=== PATIENT | female | born 1955 | race Caucasian/White ===

== ENCOUNTER 2016-09-30 20:37 | Inpatient (IN) | payer OTHER ==
[~2016-09-30] VITALS: Ht 162.6 cm; Wt 66.5 kg
[~2016-09-30 20:37] MED LIST: AUGMENTIN875 MG PO; CLEOCIN300 MG PO; Ecotrin PO; NAPROSYN500 MG PO
[2016-09-30 21:54] LABS: MCH 30.4 PG (29.0-34.0); MCHC 32.6 G/DL (30.0-36.0); MCV 93.2 FL (83-99); MEAN PLAT.VOLUME 10.7 uM^3 (9.5-12.4); PLATELET COUNT 600 K/uL (156-360); RBC DIS.WIDTH-CV 16.9 % (11.8-14.6); RED BLOOD COUNT 3.65 M/uL (3.80-5.20)
[2016-09-30 21:55] LABS: WHITE BLOOD COUNT 53.6 K/uL (4.1-10.2)
[2016-09-30 21:57] LABS: CHLORIDE 104 mEq/L (99-109); POTASSIUM 4.2 mEq/L (3.7-5.4); SODIUM 138 mEq/L (136-147)
[2016-09-30 21:58] LABS: GLUCOSE 109 mg/dL (70-99)
[2016-09-30 22:00] LABS: ANION GAP 11 MEQ/L (2-14)
[2016-09-30 22:02] LABS: GFR ESTIMATE (CALCULATED) > 59 mL/min/
[2016-09-30 22:03] LABS: TROP-I INTERPRETATION NEGATIVE; TROPONIN-I < 0.01 ng/mL (0.0-0.30)
[2016-09-30 22:12] LABS: UREA NITROGEN (BUN) 14 mg/dL (9-23)
[2016-09-30 22:15] LABS: INTER. NORMALIZED RATIO 1.1; PROTHROMBIN TIME 10.8 (9.2-11.2); PTT 27.5 (25-32)
[2016-09-30 22:17] LABS: TOTAL BILIRUBIN 0.4 mg/dL (0.0-1.0)
[2016-09-30 22:18] LABS: ALKALINE PHOSPHATASE 84 IU/L (3-129)
[2016-09-30 22:20] LABS: DIRECT BILIRUBIN 0.1 mg/dL (0.0-0.3)
[2016-09-30 22:22] LABS: LIPASE 29 U/L (1.0-51.0)
[2016-09-30] MEDS ORDERED: OMEPRAZOLE20 MG PO ×2 (23:51→23:52)
[2016-09-30] MEDS ORDERED: RANITIDINE HCL300 MG PO (23:51)
[2016-09-30] MEDS ORDERED: BENTYL20 MG PO (23:51)
[2016-09-30] MEDS ORDERED: TYLENOL EXTRA500 MG PO (23:51)
[2016-09-30] MEDS ORDERED: RANITIDINE HCL300 M1 PO (23:52)
[2016-09-30] MEDS ORDERED: ZOLOFT100 MG PO (23:52)
[2016-09-30] MEDS ORDERED: LEVOTHYROXINE50 MCG PO (23:52)
[2016-09-30] MEDS ORDERED: CLONAZEPAM0.5 MG PO (23:52)
[2016-10-01 00:17] LABS: MONOSPOT (MONONUCLEOSIS SEROL) NEGATIVE
[2016-10-01 00:18] LABS: INTERNAL CONTROL VALID? YES
[2016-10-01 00:45] LABS: HEMATOCRIT 30.2 % (36.0-46.0); MCH 29.8 PG (29.0-34.0); MCHC 31.8 G/DL (30.0-36.0); MCV 93.8 FL (83-99); MEAN PLAT.VOLUME 10.1 uM^3 (9.5-12.4); PLATELET COUNT 583 K/uL (156-360); RBC DIS.WIDTH-CV 16.8 % (11.8-14.6); RBC DIS.WIDTH-SD 54.8 % (39-53); RED BLOOD COUNT 3.22 M/uL (3.80-5.20); WHITE BLOOD COUNT 49.3 K/uL (4.1-10.2)
[2016-10-01 00:47] LABS: ADD DIFF? YES
[2016-10-01 00:48] LABS: DELETE MACHINE DIFF? NO
[2016-10-01 00:57] LABS: NRBC (%) 0.2 /100 WBC (0-0)
[2016-10-01 01:18] LABS: ADD MIUA? YES; BILIRUBIN NEGATIVE; BLOOD NEGATIVE; COLOR YELLOW ((YELLOW)); GLUCOSE (STRIP) NEGATIVE; KETONES NEGATIVE; LEUKOCYTES TRACE; NITRITE NEGATIVE; PROTEIN (STRIP) NEGATIVE; SPECIFIC GRAVITY 1.033 (1.000-1.030); UROBILINOGEN 0.2 MG/DL (0.2-1.0)
[2016-10-01 01:41] LABS: BACTERIA NONE SEEN; CASTS NONE SEEN /LPF; CRYSTALS NONE SEEN; EPITHELIAL CELLS RARE; MUCUS NONE SEEN; RED BLOOD CELLS 0-5 /HPF (0-5); UCUL ADDED? NO; WHITE BLOOD CELLS 0-5 /HPF (0-5)
[2016-10-01 01:45] LABS: ABS NEUTROPHIL COUNT 31.28; ANISOCYTOSIS 2+; ATYPICAL LYMPHOCYTE 3.5 %; BAND NEUTROPHILS 4.5 % (0-8.0); EOSINOPHIL ABS CT 1.48; HYPOCHROMASIA 1+; LYMPHOCYTES 12.5 % (15.0-45.0); MACROCYTES 2+; METAMYELOCYTES 2.5 %; MICROCYTOSIS OCC; OVALOCYTES OCC; PLAT.SUFFICIENCY INCREASED; PLATELET CLUMPS PRESENT - PLATELET COUNT APPEARS INCREASED; POLYCHROMASIA OCC; USER ID DCS
[2016-10-01 03:15] VITALS: BP 110/62
[2016-10-01 03:44] LABS: LACTATE DEHYDROGENASE 389 IU/L (20-246)
[2016-10-01 04:44] LABS: HEMATOCRIT 30.7 % (36.0-46.0); MCH 30.4 PG (29.0-34.0); MCHC 32.6 G/DL (30.0-36.0); MCV 93.3 FL (83-99); MEAN PLAT.VOLUME 10.2 uM^3 (9.5-12.4); PLATELET COUNT 604 K/uL (156-360); RBC DIS.WIDTH-SD 55.7 % (39-53); RED BLOOD COUNT 3.29 M/uL (3.80-5.20)
[2016-10-01 04:47] LABS: ADD DIFF? YES; INTER. NORMALIZED RATIO 1.1; PROTHROMBIN TIME 11.4 (9.2-11.2); PTT 28.9 (25-32); WHITE BLOOD COUNT 50.1 K/uL (4.1-10.2)
[2016-10-01 04:55] LABS: NRBC (%) 0.2 /100 WBC (0-0)
[2016-10-01 04:58] LABS: TROP-I INTERPRETATION NEGATIVE; TROPONIN-I < 0.01 ng/mL (0.0-0.30)
[2016-10-01 06:18] LABS: ABS NEUTROPHIL COUNT 28.07; ANISOCYTOSIS 2+; ATYPICAL LYMPHOCYTE 5.5 %; EOSINOPHIL ABS CT 1.75; EOSINOPHILS 3.5 % (0-5.0); HYPOCHROMASIA 1+; MACROCYTES 2+; MICROCYTOSIS OCC; MYELOCYTES 3.5 %; OVALOCYTES OCC; PLAT.SUFFICIENCY INCREASED; PLATELET CLUMPS PRESENT - PLATELET COUNT APPEARS INCREASED; POLYCHROMASIA OCC; SPHEROCYTES OCC; USER ID DCS
[2016-10-01 08:00] VITALS: BP 94/54
[2016-10-01 10:49] LABS: TROP-I INTERPRETATION NEGATIVE; TROPONIN-I < 0.01 ng/mL (0.0-0.30)
[2016-10-01 11:14] VITALS: BP 97/58
[2016-10-01 13:28] LABS: DELETE MACHINE DIFF? YES
[2016-10-01 15:45] VITALS: BP 105/58
[2016-10-01 19:50] VITALS: BP 99/62
[2016-10-01 23:14] VITALS: BP 107/62
[2016-10-02 03:39] VITALS: BP 103/59
[2016-10-02 07:29] LABS: ANION GAP 7 MEQ/L (2-14); CHLORIDE 110 MEQ/L (99-109); GFR ESTIMATE (CALCULATED) > 59 mL/min/; GLUCOSE 87 mg/dL (70-99); IRON 23 MCG/DL (35-150); POTASSIUM 4.3 MEQ/L (3.7-5.4); SAMPLE HEMOLYSIS CHECK 0; SAMPLE ICTERIC CHECK 0; SAMPLE LIPEMIA CHECK 0; SODIUM 141 MEQ/L (136-147); UREA NITROGEN (BUN) 7 mg/dL (9-23)
[2016-10-02 07:34] LABS: HEMATOCRIT 30.8 % (36.0-46.0); MCH 29.7 PG (29.0-34.0); MCHC 31.5 G/DL (30.0-36.0); MCV 94.2 FL (83-99); RBC DIS.WIDTH-CV 17.3 % (11.8-14.6); RBC DIS.WIDTH-SD 59.7 % (39-53); RED BLOOD COUNT 3.27 M/uL (3.80-5.20)
[2016-10-02 07:49] LABS: WHITE BLOOD COUNT 42.9 K/uL (4.1-10.2)
[2016-10-02 07:51] LABS: HEMATOLOGY COMMENT 1 SMEAR COMPATIBLE; MEAN PLAT.VOLUME 10.8 uM^3 (9.5-12.4); PLATELET COUNT 507 K/uL (156-360)
[2016-10-02 07:53] VITALS: BP 112/65
[2016-10-02 15:59] VITALS: BP 105/63
[2016-10-02 23:11] VITALS: BP 108/61
[2016-10-03 07:02] LABS: NRBC (%) 0.2 /100 WBC (0-0)
[2016-10-03 07:21] LABS: MEAN PLAT.VOLUME 10.8 uM^3 (9.5-12.4); PLATELET COUNT 475 K/uL (156-360)
[2016-10-03 07:28] LABS: ANION GAP 8 MEQ/L (2-14); CHLORIDE 111 MEQ/L (99-109); GFR ESTIMATE (CALCULATED) > 59 mL/min/; GLUCOSE 82 mg/dL (70-99); POTASSIUM 3.9 MEQ/L (3.7-5.4); SAMPLE HEMOLYSIS CHECK 0; SAMPLE ICTERIC CHECK 0; SAMPLE LIPEMIA CHECK 0; SODIUM 143 MEQ/L (136-147); UREA NITROGEN (BUN) 9 mg/dL (9-23)
[2016-10-03 08:02] LABS: ABS NEUTROPHIL COUNT 24.62; BAND NEUTROPHILS 12.5 % (0-8.0); EOSINOPHIL ABS CT 1.03; EOSINOPHILS 2.5 % (0-5.0); METAMYELOCYTES 15.5 %; MYELOCYTES 1.5 %
[2016-10-03 08:04] LABS: ANISOCYTOSIS OCC; HEMATOCRIT 29.9 % (36.0-46.0); MCH 29.6 PG (29.0-34.0); MCHC 31.8 G/DL (30.0-36.0); MCV 93.1 FL (83-99); OVALOCYTES OCC; PLAT.SUFFICIENCY INCREASED; POLYCHROMASIA OCC; RBC DIS.WIDTH-CV 17.2 % (11.8-14.6); RBC DIS.WIDTH-SD 58.6 % (39-53); RED BLOOD COUNT 3.21 M/uL (3.80-5.20); USER ID SDF
[2016-10-03 08:05] LABS: DELETE MACHINE DIFF? YES; WHITE BLOOD COUNT 41.4 K/uL (4.1-10.2)
[2016-10-03 08:15] VITALS: BP 97/51
[2016-10-03 12:42] LABS: Flow Clinical Information NOT PROVIDED (()); Flow Number of Markers 22 (()); Flow Spec Viability 98 % (()); Flow Specimen Type PERIPHERAL BLOOD (())
[2016-10-03 15:30] VITALS: BP 104/58
[2016-10-03 17:43] LABS: BCR-ABL1/ABL1 %(IS) 55.339 % (()); Prior Results Not Given (())
[2016-10-03 18:31] LABS: P190 BCR-ABL1 Not Detected (()); P210 BCR-ABL1 Detected (())
[2016-10-03 19:36] VITALS: BP 110/62
[2016-10-03 23:33] VITALS: BP 109/73
[2016-10-04 03:39] VITALS: BP 123/70
[2016-10-04 07:11] LABS: MEAN PLAT.VOLUME 10.9 uM^3 (9.5-12.4); NRBC (%) 0.4 /100 WBC (0-0); PLATELET COUNT 556 K/uL (156-360)
[2016-10-04 07:34] LABS: ANION GAP 7 MEQ/L (2-14); CHLORIDE 107 MEQ/L (99-109); GFR ESTIMATE (CALCULATED) > 59 mL/min/; GLUCOSE 85 mg/dL (70-99); POTASSIUM 4.2 MEQ/L (3.7-5.4); SAMPLE HEMOLYSIS CHECK 0; SAMPLE ICTERIC CHECK 0; SAMPLE LIPEMIA CHECK 0; SODIUM 141 MEQ/L (136-147); UREA NITROGEN (BUN) 8 mg/dL (9-23)
[2016-10-04 07:43] LABS: HEMATOCRIT 32.2 % (36.0-46.0); MCHC 31.7 G/DL (30.0-36.0); MCV 94.7 FL (83-99); RBC DIS.WIDTH-CV 17.4 % (11.8-14.6)
[2016-10-04 08:29] VITALS: BP 109/66
[2016-10-04 08:41] LABS: ABS NEUTROPHIL COUNT 32.82; ANISOCYTOSIS 2+; EOSINOPHIL ABS CT 2.25; HYPOCHROMASIA 1+; LYMPHOCYTES 14.5 % (15.0-45.0); MICROCYTOSIS 1+; MYELOCYTES 1.5 %; OVALOCYTES 1+; PLAT.SUFFICIENCY INCREASED; USER ID NJR
[2016-10-04 08:42] LABS: DELETE MACHINE DIFF? YES
[2016-10-04 11:43] VITALS: BP 105/64
[2016-10-04] MEDS ORDERED: LOVENOX60 MG/0.6 SC ×3 (13:19→17:26)
[2016-10-04] MEDS ORDERED: ONDANSETRON ODT4 MG PO ×2 (14:11→17:26)
[2016-10-04 16:52] LABS: JAK2 Mutation Result NOT DETECTED (())
[2016-10-04 17:23] LABS: JAK2 Exon 12 Mutation NOT DETECTED (())
[2016-10-15] MEDS ORDERED: ALLOPURINOL100 MG PO (11:02)
[2016-10-15] MEDS ORDERED: SPRYCEL140 MG PO (11:06)
[2016-10-15] MEDS ORDERED: WARFARIN SODIUM5 MG PO (11:06)
== END 2016-10-04 15:21 | disposition home or self-care (01) | DRG 815 ==
LOC: EME 20:37 → EDOF 10-01 02:12 → 2EAST 10-01 02:12 → 2EASTP 10-01 03:12 → 2EAST 10-01 21:08
PROVIDERS: Anesthesiology; Emergency Medicine; Hospitalist; Internal Medicine; Physician Assistant Medical
DX: D73.5 Infarction of spleen (principal); C94.6 Myelodysplastic disease, not elsewhere classified; D75.1 Secondary polycythemia; D47.3 Essential (hemorrhagic) thrombocythemia; R16.2 Hepatomegaly with splenomegaly, not elsewhere classified; K27.9 Peptic ulcer, site unspecified, unspecified as acute or chronic, without hemorrhage or perforation; R07.89 Other chest pain; D72.829 Elevated white blood cell count, unspecified; E03.8 Other specified hypothyroidism; Z85.3 Personal history of malignant neoplasm of breast; Z92.3 Personal history of irradiation; K21.9 Gastro-esophageal reflux disease without esophagitis; K59.00 Constipation, unspecified; D64.9 Anemia, unspecified
CPT/HCPCS: 71020; 71275; 74000; 74177; 80048; 80076; 81003; 81206 90; 81270 90; 82140; 82272; 82607; 82746; 83540; 83605; 83615; 83690; 84443; 84466; 84484; 84550; 85025; 85025 91; 85027; 85610; 85730; 86308; 87040; 88184 90; 88185 90; 88189 90; 93005; 99281; 99285; C9113; J0696; J1170; J1200; J1650; J1756; J2270; J2405; J7030; J7050

== ENCOUNTER → 2016-10-18 | Outpatient (CLI) | payer OTHER ==
[~2016-10-18] VITALS: Ht 162.6 cm; Wt 65.0 kg
[~2016-10-18] MED LIST changes: +ALLOPURINOL100 MG PO; +BENTYL20 MG PO; +CLONAZEPAM0.5 MG PO; +LEVOTHYROXINE50 MCG PO; +LOVENOX60 MG/0.6 SC; +OMEPRAZOLE20 MG PO; +ONDANSETRON ODT4 MG PO; +RANITIDINE HCL300 M1 PO; +RANITIDINE HCL300 MG PO; +SPRYCEL140 MG PO; +TYLENOL EXTRA500 MG PO; +WARFARIN SODIUM5 MG PO; +ZOLOFT100 MG PO
[2016-10-18 10:33] LABS: NRBC (%) 0.4 /100 WBC (0-0); PLATELET COUNT 684 K/uL (156-360)
[2016-10-18 10:44] LABS: HEMATOCRIT 34.6 % (36.0-46.0); MCH 30.1 PG (29.0-34.0); MCHC 31.5 G/DL (30.0-36.0); MCV 95.6 FL (83-99); RED BLOOD COUNT 3.62 M/uL (3.80-5.20)
[2016-10-18 10:45] LABS: WHITE BLOOD COUNT 49.7 K/uL (4.1-10.2)
[2016-10-18 10:47] LABS: DELETE MACHINE DIFF? YES
[2016-10-18 12:25] LABS: ABS NEUTROPHIL COUNT 30.31; ANISOCYTOSIS 2+; EOSINOPHIL ABS CT 1.74; EOSINOPHILS 3.5 % (0-5.0); LYMPHOCYTES 11.5 % (15.0-45.0); METAMYELOCYTES 4.5 %; MICROCYTOSIS 1+; OVALOCYTES OCC; PLAT.SUFFICIENCY INCREASED; POLYCHROMASIA RARE; USER ID TLN
[2016-10-21 12:41] LABS: Flow Number of Markers 22 (()); Flow Spec Viability 99 % (()); Flow Specimen Type BONE MARROW (())
[2016-10-22 13:20] LABS: BCR-ABL1/ABL1 %(IS) 70.921 % (()); Prior Results See Report (())
[2016-10-22 14:06] LABS: P210 BCR-ABL1 Detected (())
== END | disposition home or self-care (01) ==
LOC: OPR 09:41 → EDSTATUS 10:00 → OPR 10:00
PROVIDERS: Anesthesiology
PROC: 07DR3ZX Extraction of Iliac Bone Marrow, Percutaneous Approach, Diagnostic (ICD-10-PCS; principal; 2016-10-18)
DX: D72.829 Elevated white blood cell count, unspecified (principal); C92.10 Chronic myeloid leukemia, BCR/ABL-positive, not having achieved remission; E03.9 Hypothyroidism, unspecified; M81.0 Age-related osteoporosis without current pathological fracture
CPT/HCPCS: 77012; 81206 90; 85025; 85999; 88184 90; 88185 90; 88189 90; J3010

== ENCOUNTER → 2016-11-20 | Outpatient (CLI) | payer OTHER | END | disposition home or self-care (01) | LOC: NUC 09:54 | DX: C50.919 Malignant neoplasm of unspecified site of unspecified female breast (principal) | CPT/HCPCS: 78306; A9503 ==

== ENCOUNTER 2017-01-01 09:00 | Inpatient (IN) | payer OTHER ==
[~2017-01-01] VITALS: Ht 162.6 cm; Wt 63.0 kg
[2017-01-01 10:15] LABS: EOSINOPHIL (%) 1.8 % (0-5); HEMATOCRIT 31.7 % (36.0-46.0); LYMPHOCYTE COUNT 0.6 K/uL (1.0-2.8); MCH 31.1 PG (29.0-34.0); MCHC 32.2 G/DL (30.0-36.0); MCV 96.6 FL (83-99); MONOCYTE (%) 1.2 % (3-12); NEUTROPHIL (%) 63.3 % (45-76); RBC DIS.WIDTH-CV 14.9 % (11.8-14.6); RBC DIS.WIDTH-SD 52.9 % (39-53); RED BLOOD COUNT 3.28 M/uL (3.80-5.20)
[2017-01-01 10:19] LABS: WHITE BLOOD COUNT 1.6 K/uL (4.1-10.2)
[2017-01-01 10:57] LABS: IMM.PLATELET FRACTION 1.5 (1-7); MEAN PLAT.VOLUME 9.7 uM^3 (9.5-12.4); PLAT.SUFFICIENCY DECREASED; PLATELET COUNT 49 K/uL (156-360)
[2017-01-01 12:01] LABS: ADD MIUA? NO; BILIRUBIN NEGATIVE; BLOOD NEGATIVE; COLOR YELLOW ((YELLOW)); GLUCOSE (STRIP) NEGATIVE; KETONES NEGATIVE; LEUKOCYTES NEGATIVE; NITRITE NEGATIVE; PROTEIN (STRIP) NEGATIVE; SPECIFIC GRAVITY 1.014 (1.000-1.030); UROBILINOGEN 0.2 MG/DL (0.2-1.0)
[2017-01-01 12:43] LABS: CHLORIDE 110 mEq/L (99-109); POTASSIUM 4.3 mEq/L (3.7-5.4); SODIUM 139 mEq/L (136-147)
[2017-01-01 12:45] LABS: GLUCOSE 103 mg/dL (70-99)
[2017-01-01 12:47] LABS: ANION GAP 6 MEQ/L (2-14); TOTAL BILIRUBIN 0.6 mg/dL (0.0-1.0)
[2017-01-01 12:49] LABS: ALKALINE PHOSPHATASE 124 IU/L (3-129); GFR ESTIMATE (CALCULATED) > 59 mL/min/
[2017-01-01 12:50] LABS: UREA NITROGEN (BUN) 12 mg/dL (9-23)
[2017-01-01] MEDS ORDERED: OMEPRAZOLE40 M1 PO (15:51)
[2017-01-01] MEDS ORDERED: LOMOTIL TABLET1 EACH PO (15:53)
[2017-01-01] MEDS ORDERED: OMEPRAZOLE20 MG PO (15:54)
[2017-01-01] MEDS ORDERED: TASIGNA150 MG PO (15:56)
[2017-01-01] MEDS ORDERED: ZOFRAN4 MG PO (15:57)
[2017-01-01] MEDS ORDERED: SPRYCEL100 MG PO (16:12)
[2017-01-01 18:32] VITALS: BP 97/52
[2017-01-01 19:57] VITALS: BP 128/63
[2017-01-01 23:45] VITALS: BP 98/52
[2017-01-02 06:33] LABS: ANION GAP 5 MEQ/L (2-14); CHLORIDE 109 MEQ/L (99-109); GFR ESTIMATE (CALCULATED) > 59 mL/min/; GLUCOSE 87 mg/dL (70-99); POTASSIUM 3.8 MEQ/L (3.7-5.4); SAMPLE HEMOLYSIS CHECK 0; SAMPLE ICTERIC CHECK 0; SAMPLE LIPEMIA CHECK 0; SODIUM 138 MEQ/L (136-147); UREA NITROGEN (BUN) 9 mg/dL (9-23)
[2017-01-02 06:36] LABS: HEMATOCRIT 25.6 % (36.0-46.0); IMM.PLATELET FRACTION 1.1 (1-7); MCH 31.2 PG (29.0-34.0); MCV 97.3 FL (83-99); MEAN PLAT.VOLUME 9.4 uM^3 (9.5-12.4); PLATELET COUNT 51 K/uL (156-360); RBC DIS.WIDTH-CV 15.1 % (11.8-14.6); RBC DIS.WIDTH-SD 53.5 % (39-53); RED BLOOD COUNT 2.63 M/uL (3.80-5.20)
[2017-01-02 06:39] LABS: WHITE BLOOD COUNT 1.7 K/uL (4.1-10.2)
[2017-01-02 07:05] LABS: EOSINOPHIL (%) 2.9 % (0-5); EOSINOPHIL COUNT 0.1 K/uL (0-0.3); INSTRUMENT ABS NEUTROPHIL CT 0.8 K/uL; LYMPHOCYTE COUNT 0.9 K/uL (1.0-2.8); MONOCYTE (%) 2.9 % (3-12); MONOCYTE COUNT 0.1 K/uL (0-0.8); NEUTROPHIL (%) 43.3 % (45-76); NEUTROPHIL COUNT 0.8 K/uL (1.8-6.4); PLAT.SUFFICIENCY DECREASED
[2017-01-02 07:26] VITALS: BP 95/51
[2017-01-02 13:34] LABS: INTER. NORMALIZED RATIO 1.2; PROTHROMBIN TIME 12.6 (9.2-11.2); PTT 28.3 (25-32)
[2017-01-02 13:35] VITALS: BP 105/58
[2017-01-02 16:19] VITALS: BP 103/59
[2017-01-02 16:21] VITALS: BP 101/55; BP 117/56
[2017-01-02 16:35] VITALS: BP 103/55
[2017-01-02 22:49] VITALS: BP 95/52
[2017-01-03 06:43] LABS: EOSINOPHIL (%) 5.5 % (0-5); EOSINOPHIL COUNT 0.1 K/uL (0-0.3); HEMATOCRIT 25.5 % (36.0-46.0); INSTRUMENT ABS NEUTROPHIL CT 0.3 K/uL; LYMPHOCYTE COUNT 0.8 K/uL (1.0-2.8); MCH 31.6 PG (29.0-34.0); MCHC 32.5 G/DL (30.0-36.0); MONOCYTE (%) 3.1 % (3-12); NEUTROPHIL COUNT 0.3 K/uL (1.8-6.4); RBC DIS.WIDTH-CV 14.9 % (11.8-14.6); RBC DIS.WIDTH-SD 52.4 % (39-53); RED BLOOD COUNT 2.63 M/uL (3.80-5.20)
[2017-01-03 06:44] LABS: ANION GAP 5 MEQ/L (2-14); CHLORIDE 113 MEQ/L (99-109); GFR ESTIMATE (CALCULATED) > 59 mL/min/; GLUCOSE 87 mg/dL (70-99); POTASSIUM 3.8 MEQ/L (3.7-5.4); SAMPLE HEMOLYSIS CHECK 0; SAMPLE ICTERIC CHECK 0; SAMPLE LIPEMIA CHECK 0; SODIUM 141 MEQ/L (136-147); UREA NITROGEN (BUN) 9 mg/dL (9-23)
[2017-01-03 06:49] LABS: WHITE BLOOD COUNT 1.3 K/uL (4.1-10.2)
[2017-01-03 07:42] VITALS: BP 103/61
[2017-01-03 07:54] LABS: IMM.PLATELET FRACTION 1.1 (1-7); MEAN PLAT.VOLUME 9.4 uM^3 (9.5-12.4); PLATELET COUNT 57 K/uL (156-360)
[2017-01-03 11:06] VITALS: BP 111/55
[2017-01-03 16:51] VITALS: BP 122/59
[2017-01-03 22:51] VITALS: BP 114/59
[2017-01-04 07:28] VITALS: BP 122/66
[2017-01-04] MEDS ORDERED: METRONIDAZOLE500 MG PO (09:24)
[2017-01-04] MEDS ORDERED: CIPROFLOXACIN250 MG PO (09:24)
[2017-01-04 10:35] VITALS: BP 116/67
[2017-01-04 11:43] VITALS: BP 113/66
[2017-01-05 12:13] LABS: Flow Number of Markers 22 (()); Flow Spec Viability 86 % (()); Flow Specimen Type BONE MARROW (())
== END 2017-01-04 14:55 | disposition home or self-care (01) | DRG 391 ==
LOC: EME 09:00 → EDOF 14:39 → 5EAST 14:39
PROVIDERS: Anesthesiology; Emergency Medicine; Hospitalist; Radiology Diagnostic Radiology
PROC: 07DR3ZX Extraction of Iliac Bone Marrow, Percutaneous Approach, Diagnostic (ICD-10-PCS; principal; 2017-01-02)
DX: K57.32 Diverticulitis of large intestine without perforation or abscess without bleeding (principal); D61.810 Antineoplastic chemotherapy induced pancytopenia; C92.10 Chronic myeloid leukemia, BCR/ABL-positive, not having achieved remission; K21.9 Gastro-esophageal reflux disease without esophagitis; E03.2 Hypothyroidism due to medicaments and other exogenous substances; D73.5 Infarction of spleen; Z85.3 Personal history of malignant neoplasm of breast; T45.1X5A Adverse effect of antineoplastic and immunosuppressive drugs, initial encounter; M94.0 Chondrocostal junction syndrome [Tietze]
CPT/HCPCS: 74177; 77012; 80048; 80053; 81003; 85025; 85610; 85730; 85999; 88184 90; 88185 90; 88189 90; 88237 90; 88264 90; 88271 90; 88275 90; 88280 90; 88291 90; 99281; 99285; J0744; J1885; J1956; J2270; J2405; J3010; J7030; S0028; S0030

== ENCOUNTER 2017-03-11 11:37 | Emergency (ER) | payer OTHER ==
[~2017-03-11] VITALS: Ht 160 cm; Wt 61.4 kg
[~2017-03-11 11:37] MED LIST changes: +CIPROFLOXACIN250 MG PO; +LOMOTIL TABLET1 EACH PO; +METRONIDAZOLE500 MG PO; +OMEPRAZOLE40 M1 PO; +SPRYCEL100 MG PO; +TASIGNA150 MG PO; +ZOFRAN4 MG PO
[2017-03-11 13:51] LABS: ADD MIUA? YES; BILIRUBIN NEGATIVE; BLOOD NEGATIVE; COLOR YELLOW ((YELLOW)); GLUCOSE (STRIP) NEGATIVE; KETONES NEGATIVE; LEUKOCYTES NEGATIVE; NITRITE NEGATIVE; PROTEIN (STRIP) 30; SPECIFIC GRAVITY 1.023 (1.000-1.030); UROBILINOGEN 0.2 MG/DL (0.2-1.0)
[2017-03-11 14:00] LABS: BACTERIA RARE /HPF; CALCIUM OXALATE CRYSTALS 1+ /HPF; EPITHELIAL CELLS RARE /HPF; MUCUS 2+ /LPF; RED BLOOD CELLS 0-5 /HPF (0-5); UCUL ADDED? NO; WHITE BLOOD CELLS 0-5 /HPF (0-5)
[2017-03-11 14:10] LABS: CHLORIDE 106 mEq/L (99-109); POTASSIUM 4.2 mEq/L (3.7-5.4); SODIUM 139 mEq/L (136-147)
[2017-03-11 14:13] LABS: GLUCOSE 99 mg/dL (70-99); HEMATOCRIT 33.5 % (36.0-46.0); MCH 31.1 PG (29.0-34.0); MCHC 32.5 G/DL (30.0-36.0); MCV 95.4 FL (83-99); MEAN PLAT.VOLUME 9.6 uM^3 (9.5-12.4); PLATELET COUNT 99 K/uL (156-360); RBC DIS.WIDTH-CV 14.9 % (11.8-14.6); RBC DIS.WIDTH-SD 52.3 % (39-53); RED BLOOD COUNT 3.51 M/uL (3.80-5.20)
[2017-03-11 14:14] LABS: ANION GAP 10 MEQ/L (2-14); TOTAL BILIRUBIN 1.6 mg/dL (0.0-1.0)
[2017-03-11 14:16] LABS: ALKALINE PHOSPHATASE 146 IU/L (3-129); GFR ESTIMATE (CALCULATED) > 59 mL/min/; WHITE BLOOD COUNT 1.6 K/uL (4.1-10.2)
[2017-03-11 14:17] LABS: UREA NITROGEN (BUN) 11 mg/dL (9-23)
[2017-03-11 14:18] LABS: DIRECT BILIRUBIN 0.5 mg/dL (0.0-0.3)
[2017-03-11 14:20] LABS: LIPASE 14 U/L (1.0-51.0)
[2017-03-11 14:22] LABS: TROP-I INTERPRETATION NEGATIVE; TROPONIN-I < 0.01 ng/mL (0.0-0.30)
[2017-03-11] MEDS ORDERED: OXYCODONE HCL5 MG PO (17:24)
[2017-03-11 17:49] VITALS: BP 99/61
== END 2017-03-11 18:30 | disposition home or self-care (01) ==
LOC: EME 11:37
DX: M51.34 Other intervertebral disc degeneration, thoracic region (principal); M50.322 Other cervical disc degeneration at C5-C6 level; M50.323 Other cervical disc degeneration at C6-C7 level; R10.9 Unspecified abdominal pain; K58.9 Irritable bowel syndrome, unspecified; C95.90 Leukemia, unspecified not having achieved remission; K21.9 Gastro-esophageal reflux disease without esophagitis; E03.9 Hypothyroidism, unspecified; Z87.442 Personal history of urinary calculi; Z85.3 Personal history of malignant neoplasm of breast
CPT/HCPCS: 71020; 72125; 72128; 76705; 80048; 80076; 81003; 83690; 84484; 85027; 93005; 99281; 99284